=== PATIENT | female | born 1995 | race Caucasian/White ===

== ENCOUNTER 2025-11-05 20:28 | Inpatient (IN) ==
[2025-11-05 21:02] LABS: GLUCOSE, URINE (UA) NEGATIVE (NEGATIVE); KETONES,URINE (UA) NEGATIVE (NEGATIVE); OCCULT BLOOD,URINE NEGATIVE (NEGATIVE)
[2025-11-05 21:10] LABS: AMPHETAMINE SCREEN,URINE NEGATIVE (NEGATIVE); BARBITURATE SCREEN,UR NEGATIVE (NEGATIVE); BENZODIAZEPINES SCREEN, URINE NEGATIVE (NEGATIVE); BUPRENORPHINE SCREEN, URINE NEGATIVE (NEGATIVE); COCAINE SCREEN URINE NEGATIVE (NEGATIVE); METHAMPHETAMINES SCREEN, URINE NEGATIVE (NEGATIVE); OPIATE SCREEN, URINE NEGATIVE (NEGATIVE); THC CANNABINOID SCREEN, URINE POSITIVE (NEGATIVE)
[2025-11-05 21:13] LABS: SQUAMOUS EPITHELIAL CELL,UR NONE SEEN (<= Few)
[2025-11-05 21:13] LABS: HCT - HEMATOCRIT 39.7 % (37.0-47.0); HGB - HEMOGLOBIN 13.1 g/dL (12.0-16.0); MEAN PLATELET VOLUME 9.0 fL (7.9-10.8); NRBC ABSOLUTE COUNT (AUTO) 0.00 x10^3/uL; NUCLEATED RED BLOOD CELLS AUTO 0.0 /100WBC; PLT - PLATELET COUNT 355 10^3/uL (130-450); RED CELL DISTRIBUTION WIDTH 11.9 % (12.0-15.0)
[2025-11-05 21:14] LABS: AMORPHOUS SEDIMENT,UR Marked /LPF
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
[2025-11-05 21:39] LABS: ALT ALANINE AMINOTRANSFERASE 12 IU/L (10-60); AST ASPARTATE AMINOTRANSFERASE 13 IU/L (10-42); BUN - BLOOD UREA NITROGEN 16 mg/dL (6-20); CARBON DIOXIDE - CO2 24 mmol/L (21-32); CK- CREATINE KINASE 39 IU/L (30-223); CREATININE 0.8 mg/dL (0.6-1.3); ETOH - ETHANOL < 10.0 mg/dL; GFR - MDRD 86 (>89)
--- NOTE | 2025-11-05 22:43 | HISTORY & PHYSICAL EXAMINATION ---
Chief Complaint Chief Complaint Chief Complaint: medication overdose History of Present Illness Admitted From Admitted From:: home History Obtained From History obtained from: Ed physician, patient Exam Limitations: telemedicine History of Present Illness HPI Comment/Other: Mr. Mari is a 29-year-old female who presented to the ED for suspected medication overdose. It was reported that she swallowed unknown quantity of pills.Time frame of onset was estimated up to 12 hours prior to arrival. History was initially provided by her significant other upon arrival to the ED. Workup demonstrated that her Tylenol level elevated to 175. Poison control was contacted and N-acetylcysteine was initiated per protocol. She was placed on a 1013. She does not endorse suicidal ideations,but family at bedside explained that she has been having increasingly odd behavior at home. This visit was performed using telehealth tools, including phone and live-video. patient provided verbal consent to complete this telemedicine encounter. During the time my interview and evaluation, the patient was located at [facility] in the [facility], I was located in [place]. Review of Systems Status of ROS: 10 or more systems reviewed and unremarkable except as noted in history and below PFSH Active Problems All Active Problems (Updated 11/05/25 @ 22:42 by Beata Madera RN) Psychiatric symptoms (Acute) Medication overdose (Acute) Anxiety (Chronic) Tylenol overdose (Acute) Medical History Medical History (Updated 11/05/25 @ 22:42 by Beata Madera RN) Acquired scoliosis Social History Social History Smoking Status: Current every day smoker Do you feel safe in your home environment?: Yes History of physical, verbal, emotional, or financial abuse?: No Meds/Allgy Allergies Allergies Allergy/AdvReac Type Severity Reaction Status Date / Time No Known Drug Allergies Allergy Verified 11/05/25 20:39 Exam Exam Vital Signs: Vital Signs x48h Temp Pulse Resp BP Pulse Ox 11/05/25 20:33 37.1 C 82 18 138/75 H 98 Examination as recorded is based on patient and staff reported information as well as peripheral observation. Constitutional distress noted (moderate) tearful Respiratory normal respiratory effort Cardiovascular normal heart rate noted and regular rhythm noted Neurology no movement abnormality noted, no focal motor deficit noted and speech normal Psychiatry oriented x3 and affect normal patient appears tearful, anxious and visibly upset/sad. Conclusion/Plan Problem List (1) Tylenol overdose: Plan: tylenol level 175 on presentation, exact time of ingestion unknown. suspected within 6-12 hours. -N-acelytcisten protocol initiated, repeat tylenol level q4hs -follow recommendations in place by poison control -trend liver and renal labs -monitor for seizure activity of GI upset, prns available -will admit to ICU for close monitoring and mangment until medically cleared. (2) Psychiatric symptoms: Plan: psychiatric consultation recommended prior to discharge -1013 initited in the ED Plan Patient will be admitted to the hospitalist service under inpatient status.greater than 2 midnights expected for management. Lab Results Lab results reviewed: Yes 11/05/25 21:05 11/05/25 21:05
[2025-11-05] MEDS ORDERED: ONDANSETRON 4 MG/2 ML VIAL IVP PRN (22:48)
[2025-11-05] MEDS: SODIUM CHLORIDE 0.9% 1,000 ML IV STA (22:49)
[2025-11-05] MEDS: NICOTINE 14 MG PATCH TOP STA (22:50)
[2025-11-05] MEDS ORDERED: SODIUM CHLORIDE FLUSH 0.9% 10 ML SYRINGE IVP PRN (22:51)
[2025-11-05] MEDS: ONDANSETRON 4 MG/2 ML VIAL IVP ONE (22:57)
[2025-11-06] MEDS: SODIUM CHLORIDE 0.9% 1,000 ML IV SCH (00:07)
[2025-11-06] MEDS: ACETYLCYSTEINE IV ONE (00:08)
[2025-11-06] MEDS: DEXTROSE 5% IV ONE (00:08)
[2025-11-06] MEDS: SODIUM CHLORIDE FLUSH 0.9% 10 ML SYRINGE IVP SCH (00:21)
[2025-11-06] MEDS: PROCHLORPERAZINE 10 MG/2 ML VIAL IVP PRN (00:52)
[2025-11-06] MEDS: ONDANSETRON 4 MG/2 ML VIAL IVP PRN (04:23)
[2025-11-06 04:47] LABS: VBG PH 7.377 (7.31-7.41)
[2025-11-06 04:48] LABS: HCT - HEMATOCRIT 33.1 % (37.0-47.0); HGB - HEMOGLOBIN 11.1 g/dL (12.0-16.0); MEAN PLATELET VOLUME 9.1 fL (7.9-10.8); NRBC ABSOLUTE COUNT (AUTO) 0.00 x10^3/uL; NUCLEATED RED BLOOD CELLS AUTO 0.0 /100WBC; PLT - PLATELET COUNT 273 10^3/uL (130-450); RED CELL DISTRIBUTION WIDTH 11.9 % (12.0-15.0)
[2025-11-06 05:03] LABS: PHOSPHORUS 2.6 mg/dL (2.5-5.0)
[2025-11-06 05:04] LABS: ALT ALANINE AMINOTRANSFERASE 12 IU/L (10-60); AST ASPARTATE AMINOTRANSFERASE 11 IU/L (10-42); BUN - BLOOD UREA NITROGEN 10 mg/dL (6-20); CARBON DIOXIDE - CO2 23 mmol/L (21-32); CREATININE 0.7 mg/dL (0.6-1.3); GFR - MDRD 100 (>89)
[2025-11-06] MEDS: MAGNESIUM SULFATE 2 GRAM 2 GM/50 ML BAG IV ONE (06:15)
[2025-11-06] MEDS: POTASSIUM CHLOR 10 MEQ/100 ML 10 MEQ/100 ML BAG IV SCH (07:07)
--- NOTE | 2025-11-06 07:35 | PROVIDER PROGRESS NOTE ---
Subjective Prog Note Date Prog Note Date: 11/06/25 Prog Note Time: 07:30 Subjective Subjective: Patient was admitted overnight. She has an elevated acetaminophen level after intentional overdose. Her level was 176 at the time of presentation, rising to 200 after 4 hours. She is on NAC protocol. That finishes up this evening. Her liver function has maintained. Normal transaminases. Bilirubin stable at 0.4. Sodium slightly low at 134. She has been getting NS since she got here. Ordering general safety diet, discontinuing IV fluids. I have added on a as needed olanzapine for agitation if needed. She is currently willing to stay but should not be allowed to leave AMA. She feels reasonably well this morning. She is not having nausea or vomiting. Denies abdominal pain. Urinating and defecating appropriately. She has very hyperactive emotions. Labile. She tends to mimic the emotion that is supplied to her (e.g. she meets assertion with assertion, cooperativity with cooperativity.) She remains on NAC. She remains in the ICU mostly for bed availability on 1:1 sitter. She is requesting access to her phone. I do not have any personal objection to her having access to her phone. NAC completes this evening. Poison control is requesting labs 2 hours prior to NAC completion. These have been ordered. Current Medications Current Medications Current Medications: Current Medications Generic Name Dose Route Start Last Admin Trade Name Freq PRN Reason Stop Dose Admin Heparin Sodium (Porcine) 5,000 unit 11/06/25 09:00 Heparin 5,000 Unit/Ml Vial SUBQ BID PADMA Acetylcysteine 4,100 mg/ 1,020.5 mls @ 63.781 mls/hr 11/06/25 04:00 11/06/25 04:16 Dextrose IV 11/06/25 19:59 63.78 mls/hr ONCE ONE Administration Sodium Chloride 1,000 mls @ 100 mls/hr 11/05/25 23:00 11/06/25 00:07 Normal Saline 0.9% IV 100 mls/hr .Q10H PADMA Administration Potassium Chloride 10 meq in 100 mls @ 100 mls/hr 11/06/25 07:00 11/06/25 07:07 Potassium Chloride IV 11/06/25 08:59 100 mls/hr Q1H PADMA Administration Protocol Ondansetron HCl 4 mg 11/05/25 22:51 11/06/25 04:23 Ondansetron 4 Mg/2 Ml Vial IVP 4 mg Q6HR PRN Administration Nausea / Vomiting Prochlorperazine Edisylate 5 mg 11/06/25 00:38 11/06/25 00:52 Prochlorperazine 10 Mg/2 Ml Vial IVP 5 mg Q6HR PRN Administration Nausea / Vomiting Sodium Chloride 10 ml 11/06/25 01:00 11/06/25 00:21 Sodium Chloride Flush 0.9% 10 Ml Syringe IVP Not Given 0100,0900,1700 PADMA Sodium Chloride 10 ml 11/05/25 22:51 Sodium Chloride Flush 0.9% 10 Ml Syringe IVP PRN PRN NEEDED PER PROVIDER ORDERS Objective Vital Signs/Intake & Output Reviewed Vital Signs: Yes Vital Signs: Vital Signs x48h Temp Pulse Resp BP Pulse Ox 11/06/25 07:00 72 15 92/53 L 97 11/06/25 06:00 66 16 111/65 98 11/06/25 05:00 60 18 109/78 98 11/06/25 04:20 36.4 C L 11/06/25 04:00 75 16 126/87 97 11/06/25 03:00 80 20 134/90 H 98 11/06/25 02:00 71 14 91/60 98 11/06/25 01:00 97 15 124/75 97 11/06/25 00:00 36.4 C L 100 19 130/90 98 Intake & Output: Intake & Output 11/03/25 11/04/25 11/05/25 11/06/25 23:59 23:59 23:59 23:59 Intake Total 1231 / 1231 Output Total 200 / 200 Balance 1031 / 1031 Weight (kg) 47.5 kg 47.5 kg Objective Comments/Other: GEN: No acute distress. Makes eye contact appropriately. HEENT: NC/AT, normal appearance of external ears and nose. Hearing baseline. Cardiac: Regular rate and rhythm, no murmurs. Euvolemic on exam. Pulm: Lungs CTA bilaterally, no cough, no wheezes. Normal effort on room air. Abdomen: Soft, nontender, nondistended. No nausea or vomiting. Extremities: Moves all 4 extremities equally. Normal tone. Neuro: Face symmetric, CN II through XII intact grossly. No focal neurologic deficits. Psych: Mood euthymic. Affect reactive. Somewhat labile. Linear thought process. Questionable insight. Lab Results 11/06/25 04:39 11/06/25 04:39 Other Labs: Lab Results x24hrs 11/06/25 11/06/25 11/05/25 Range/Units 04:39 00:15 23:30 WBC 4.2 L (4.8-10.8) x10^3/uL RBC 3.64 L (4.20-5.40) 10^6/uL Hgb 11.1 L (12.0-16.0) g/dL Hct 33.1 L (37.0-47.0) % MCV 90.9 (81.0-99.0) fL MCH 30.5 (27.0-31.0) pg MCHC 33.5 (32.0-36.0) g/dL RDW 11.9 L (12.0-15.0) % Plt Count 273 (130-450) 10^3/uL MPV 9.1 (7.9-10.8) fL Neut # (Auto) 3.1 (1.5-6.6) 10^3/uL Lymph # (Auto) 1.0 L (1.5-3.5) 10^3/uL [place] # (Auto) 0.1 (0.0-1.0) 10^3/uL Eos # (Auto) 0.0 (0.0-0.7) 10^3/uL Baso # (Auto) 0.0 (0.0-0.1) 10^3/uL Absolute Nucleated RBC 0.00 x10^3/uL Nucleated RBC % 0.0 /100WBC VBG pH 7.377 (7.31-7.41) Ionized Calcium 1.15 (1.09-1.30) mmol/L Sodium 134 L (135-145) mmol/L Potassium 3.9 (3.5-4.5) mmol/L Chloride 103 (101-111) mmol/L Carbon Dioxide 23 (21-32) mmol/L Anion Gap 8.0 (6-13) BUN 10 (6-20) mg/dL Creatinine 0.7 (0.6-1.3) mg/dL Estimated GFR (MDRD) 100 (>89) Glucose 145 H (74-104) mg/dL Calcium 8.0 L (8.5-10.3) mg/dL Phosphorus 2.6 (2.5-5.0) mg/dL Magnesium 1.6 L (1.7-2.3) mg/dL Total Bilirubin 0.4 (0.2-1.0) mg/dL Direct Bilirubin < 0.10 (0.03-0.18) mg/dL AST 11 (10-42) IU/L ALT 12 (10-60) IU/L Alkaline Phosphatase 28 L (42-121) IU/L Total Creatine Kinase (30-223) IU/L Total Protein 6.1 L (6.4-8.9) g/dL Albumin 3.9 (3.2-5.5) g/dL Globulin 2.2 (2.1-4.2) g/dL Albumin/Globulin Ratio (1.0-2.2) TSH (0.34-5.60) uIU/mL Urine Color Urine Clarity (CLEAR) Urine pH (5.0-7.5) PH Ur Specific [place] (1.002-1.030) Urine Protein (NEGATIVE) mg/dL Urine Glucose (UA) (NEGATIVE) mg/dL Urine Ketones (NEGATIVE) mg/dL Urine Occult Blood (NEGATIVE) Urine Nitrite (NEGATIVE) Urine Bilirubin (NEGATIVE) Urine Urobilinogen (NORMAL) E.U./dL Ur Leukocyte Esterase (NEGATIVE) Urine RBC (0-5) /HPF Urine WBC (0-5) /HPF Ur Squamous Epith Cells (<= Few) Amorphous Sediment /LPF Urine Bacteria (None Seen) /HPF Ur Microscopic Review Urine Culture Comments Nasal Screen MRSA (PCR) NEGATIVE (NEGATIVE) Salicylates mg/dL Urine Opiates Screen (NEGATIVE) Ur Buprenorphine Scrn (NEGATIVE) Ur Oxycodone Screen (NEGATIVE) Urine Methadone Screen (NEGATIVE) Urine Fentanyl Screen (NEGATIVE) Acetaminophen 197.3 H* ug/mL Ur Barbiturates Screen (NEGATIVE) Ur Tricyclics Screen (NEGATIVE) Ur Phencyclidine Scrn (NEGATIVE) Ur Amphetamine Screen (NEGATIVE) U Methamphetamines Scrn (NEGATIVE) U Benzodiazepines Scrn (NEGATIVE) Urine Cocaine Screen (NEGATIVE) U Cannabinoids Screen (NEGATIVE) Ur Drug Screen Comment Ethyl Alcohol mg/dL SARS-CoV-2 (PCR) 11/05/25 11/05/25 11/05/25 Range/Units 21:05 20:35 20:25 WBC 5.1 (4.8-10.8) x10^3/uL RBC 4.31 (4.20-5.40) 10^6/uL Hgb 13.1 (12.0-16.0) g/dL Hct 39.7 (37.0-47.0) % MCV 92.1 (81.0-99.0) fL MCH 30.4 (27.0-31.0) pg MCHC 33.0 (32.0-36.0) g/dL RDW 11.9 L (12.0-15.0) % Plt Count 355 (130-450) 10^3/uL MPV 9.0 (7.9-10.8) fL Neut # (Auto) 3.0 (1.5-6.6) 10^3/uL Lymph # (Auto) 1.6 (1.5-3.5) 10^3/uL [place] # (Auto) 0.4 (0.0-1.0) 10^3/uL Eos # (Auto) 0.0 (0.0-0.7) 10^3/uL Baso # (Auto) 0.0 (0.0-0.1) 10^3/uL Absolute Nucleated RBC 0.00 x10^3/uL Nucleated RBC % 0.0 /100WBC VBG pH (7.31-7.41) Ionized Calcium (1.09-1.30) mmol/L Sodium 136 (135-145) mmol/L Potassium 4.0 (3.5-4.5) mmol/L Chloride 103 (101-111) mmol/L Carbon Dioxide 24 (21-32) mmol/L Anion Gap 9.0 (6-13) BUN 16 (6-20) mg/dL Creatinine 0.8 (0.6-1.3) mg/dL Estimated GFR (MDRD) 86 L (>89) Glucose 121 H (74-104) mg/dL Calcium 9.1 (8.5-10.3) mg/dL Phosphorus (2.5-5.0) mg/dL Magnesium (1.7-2.3) mg/dL Total Bilirubin 0.4 (0.2-1.0) mg/dL Direct Bilirubin (0.03-0.18) mg/dL AST 13 (10-42) IU/L ALT 12 (10-60) IU/L Alkaline Phosphatase 35 L (42-121) IU/L Total Creatine Kinase 39 (30-223) IU/L Total Protein 7.4 (6.4-8.9) g/dL Albumin 4.5 (3.2-5.5) g/dL Globulin 2.9 (2.1-4.2) g/dL Albumin/Globulin Ratio 1.6 (1.0-2.2) TSH 5.15 (0.34-5.60) uIU/mL Urine Color Light yellow Urine Clarity CLOUDY (CLEAR) Urine pH 7.0 (5.0-7.5) PH Ur Specific [place] 1.015 (1.002-1.030) Urine Protein NEGATIVE (NEGATIVE) mg/dL Urine Glucose (UA) NEGATIVE (NEGATIVE) mg/dL Urine Ketones NEGATIVE (NEGATIVE) mg/dL Urine Occult Blood NEGATIVE (NEGATIVE) Urine Nitrite NEGATIVE (NEGATIVE) Urine Bilirubin NEGATIVE (NEGATIVE) Urine Urobilinogen 0.2 (NORMAL) (NORMAL) E.U./dL Ur Leukocyte Esterase NEGATIVE (NEGATIVE) Urine RBC None Seen (0-5) /HPF Urine WBC 0-3 (0-5) /HPF Ur Squamous Epith Cells NONE SEEN (<= Few) Amorphous Sediment Marked /LPF Urine Bacteria None Seen (None Seen) /HPF Ur Microscopic Review INDICATED Urine Culture Comments NOT INDICATED Nasal Screen MRSA (PCR) (NEGATIVE) Salicylates < 1.5 mg/dL Urine Opiates Screen NEGATIVE (NEGATIVE) Ur Buprenorphine Scrn NEGATIVE (NEGATIVE) Ur Oxycodone Screen NEGATIVE (NEGATIVE) Urine Methadone Screen NEGATIVE (NEGATIVE) Urine Fentanyl Screen Negative (NEGATIVE) Acetaminophen 175.8 H* ug/mL Ur Barbiturates Screen NEGATIVE (NEGATIVE) Ur Tricyclics Screen NEGATIVE (NEGATIVE) Ur Phencyclidine Scrn NEGATIVE (NEGATIVE) Ur Amphetamine Screen NEGATIVE (NEGATIVE) U Methamphetamines Scrn NEGATIVE (NEGATIVE) U Benzodiazepines Scrn NEGATIVE (NEGATIVE) Urine Cocaine Screen NEGATIVE (NEGATIVE) U Cannabinoids Screen POSITIVE H (NEGATIVE) Ur Drug Screen Comment CUTOFF CONC BELOW: Ethyl Alcohol < 10.0 mg/dL SARS-CoV-2 (PCR) NOT DETECTED Assessment/Plan Problem List (1) Tylenol overdose: Impression: Stable. Not having any nausea, vomiting. Her labs are normal. Patient is admitted in the ICU on NAC protocol. Recall that her initial Tylenol level which may have been several hours after her ingestion was 175. This increased to 197 after 4 hours. She has been started on standard dose NAC protocol. She is on her final infusion. Labs requested by poison control to be run 2 hours prior to infusion stopping. - CMP, INR, acetaminophen level ordered for 1800. - NAC protocol ends this evening - Psychiatric symptoms as below. - Likely can liberalize from ICU with one-to-one sitter today (2) Psychiatric symptoms: Impression: Overall unclear the situation. Most of the time, the patient speaks in linear thought process. She is redirectable. She has not been agitated. She is grateful for her care. She denies any hemant auditory or visual hallucinations. She at times says odd things. She does not know why she ingested so much Tylenol. She declines doing that. Her live-in boyfriend had described to the ED provider that she has been noted to be responsive to internal stimuli. She has been having "conversations with herself" more frequently. She oddly reported to Dr. Aviles in the ED that she took the Tylenol to "demonstrate that she was okay". - Patient cannot leave AMA - Will need mental health evaluation after she is done with her NAC protocol 11/07 I spent a total of 38 minutes in the care of this patient today. This time was spent reviewing labs, vital signs, imaging, interviewing and examining the patient, and discussing plan of care with them and their other care providers. Patient is here with an acute condition with threat to life and bodily function. Lab monitoring as above. Discussion with poison control as above. [id number]
[2025-11-06] MEDS: HEPARIN 5,000 UNIT/ML VIAL SUBQ SCH (08:16)
[2025-11-06] MEDS ORDERED: NICOTINE 21 MG PATCH TOP SCH (09:00)
[2025-11-06] MEDS: NICOTINE 7 MG PATCH TOP SCH (15:37)
[2025-11-06 18:17] LABS: INR 1.3 (0.8-1.2); PT - PROTHROMBIN TIME 13.9 secs (9.9-12.6)
[2025-11-06 18:28] LABS: ALT ALANINE AMINOTRANSFERASE 11.0 IU/L (10-60); AST ASPARTATE AMINOTRANSFERASE 11.0 IU/L (10-42); BUN - BLOOD UREA NITROGEN 7.0 mg/dL (6-20); CARBON DIOXIDE - CO2 24.0 mmol/L (21-32); CREATININE 0.7 mg/dL (0.6-1.3); GFR - MDRD 100.0 (>89)
--- NOTE | 2025-11-06 21:10 | PROVIDER PROGRESS NOTE ---
Progress Note Progress Note Progress Note: This patient has finished treatment protocol for tylenol overdose and is medically cleared.
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
[2025-11-06 23:54] LABS: HCG UR QUAL NEGATIVE
[2025-11-07 08:03] VITALS: TEMP 97.9
[2025-11-07] MEDS: CARBOXYMETHYLCELLULOSE OPHTH DROPS EACHEYE PRN (08:05)
--- NOTE | 2025-11-07 09:29 | Discharge Summary ---
Discharge Summary Admit Date: 11/05/25 Discharge Date: 11/07/25 Discharging Provider: Fermin Lindo Primary Care Provider: None Code Status: Attempt Resuscitation Discharge Facility Name: [facility] DIAGNOSES Discharge Diagnoses with Status of Each Condition: Intentional Tylenol overdose, resolved Mood disorder with psychosis, ongoing Scoliosis/back pain, stable, chronic HPI History of Present Illness: Ms. Mari is a 29-year-old female who presented to the ED for suspected medication overdose. It was reported that she swallowed unknown quantity of pills.Time frame of onset was estimated up to 12 hours prior to arrival. History was initially provided by her significant other upon arrival to the ED. Workup demonstrated that her Tylenol level elevated to 175. Poison control was contacted and N-acetylcysteine was initiated per protocol. She was placed on a 1013. She does not endorse suicidal ideations,but family at bedside explained that she has been having increasingly odd behavior at home. This visit was performed using telehealth tools, including phone and live-video. patient provided verbal consent to complete this telemedicine encounter. During the time my interview and evaluation, the patient was located at [facility] in the [facility], I was located in [place]. CONSULTS | PROCEDURES Consultations: Telepsych, Poison Control Procedures: None HOSPITAL COURSE Hospital Course: Patient is a 29-year-old female with no known past medical history other than scoliosis for which she takes muscle relaxers. She took an unknown quantity of Tylenol prior to arrival in the ED. She had an elevated level of 175 which elevated further to 200 on repeat 4 hours later. She had been started on standard dose NAC protocol, and completed this on the evening of 11/06. She had no sequelae from her overdose. Her last Tylenol level drawn 2 hours before NAC ended was 10.3. Her liver enzymes remained normal (AST 11, ALT 11, alk phos 28). She had no bilirubin elevation. Her INR was mildly elevated at 1.3. No significant bleeding. Her hemoglobin remained stable. Her story is concerning for likely a mood disorder with psychiatric features. I suspect bipolar. She was animated here and exhibited symptoms of helena. She has been reportedly responding to internal stimuli at home for the last couple of weeks per her partner. Since admission, she has denied any intentional act of harming herself. She however does not show any indication of understanding of the results of her action. She says she was taking all the medicine to "show how she was taking care of herself". She verbalized to her partner prior to taking the pills that "you do not have to worry about me anymore". She was seen by telepsych after she medically stabilized, and was recommended for inpatient treatment. She has been accepted to [facility] while she will go for further stabilization. She will then need to establish with ongoing behavioral health and primary care moving forward. She claims she was using muscle relaxers prior for scoliosis and back pain, she does not carry prescriptions for these. She was seen and evaluated on day of discharge. She remained clinically stable. Her vital signs remained clinically stable. She had a negative test at the request of [facility]. She transported by BLS to [facility] for voluntary admission per ITP recommendation ALLERGIES Allergies Allergy/AdvReac Type Severity Reaction Status Date / Time No Known Drug Allergies Allergy Verified 11/05/25 20:39 MEDICATIONS Ambulatory Orders Medication Instructions Recorded Confirmed No Known Home Medications 11/06/2510/10 PHYSICAL EXAM AT DISCHARGE Vital Signs: Vital Signs x48h Temp Pulse Resp BP BP Pulse Ox 11/07/25 09:00 60 25 H 90/48 L 11/07/25 08:00 36.6 C 60 17 110/63 98 11/07/25 06:55 37.0 C 57 L 14 105/66 97 LABS 11/06/25 04:39 11/06/25 18:06 FOLLOW UP Follow Up: Needs to establish with PCP and behavioral health provider. TIME SPENT Time Spent in Discharge (Minutes): 32 Discharge Plan Discharge Patient Disposition: 65 Psych Hosp/Unit DC/Xfer Condition: Stable Medically Cleared Date:: 11/06/25 Medically Cleared Comments:: Cleared late in day on 11/06 Prescriptions: No Action No Known Home Medications Activity Restrictions: No Restrictions Diet: Regular Health Concerns: You were admitted after overdosing on Tylenol as well as possible other substances. You received a treatment to help prevent injury to your liver while you were here. This was an IV medicine that you received. Your liver enzymes appear normal, and your Tylenol level is now back to normal. There are some's concerns about your thought processes and mood surrounding the action of taking so much Tylenol. The psychiatric doctors believe that you may benefit from a stay at a psychiatric hospital for further stabilization with medications. You are being discharged to [facility]. Print Language: Sinhala Stand Alone Forms: SBIRT
[2025-11-07 09:49] VITALS: BP 123/84; O2SAT 97
== END 2025-11-07 09:45 | DRG 918 ==
LOC: ED 20:28 → ICU 22:11 → SUATTDRO 22:11 → ICU 23:19
PROVIDERS: ADMIT Hospitalist; ATTEND Student in an Organized Health Care Education/Training Program
DX: F41.9 Anxiety disorder, unspecified; M41.9 Scoliosis, unspecified; F42.9 Obsessive-compulsive disorder, unspecified; F43.10 Post-traumatic stress disorder, unspecified; T39.1X2A Poisoning by 4-Aminophenol derivatives, intentional self-harm, initial encounter; Y92.009 Unspecified place in unspecified non-institutional (private) residence as the place of occurrence of the external cause; F17.210 Nicotine dependence, cigarettes, uncomplicated; F39 Unspecified mood [affective] disorder